=== PATIENT | male | born 1985 | race Caucasian/White ===

== ENCOUNTER 2019-03-01 12:57 | Inpatient (IN) ==
[2019-03-01] MEDS ORDERED: SODIUM CHLORIDE 0.9% IV STA (13:46)
[2019-03-01] MEDS ORDERED: VANCOMYCIN HCL IV STA (13:46)
[2019-03-01] MEDS ORDERED: VANCOMYCIN CONSULT ACTIVE PRN ×2 (13:46→16:33)
[2019-03-01] MEDS ORDERED: SODIUM CHLORIDE 0.9% 500 ML IV SCH (14:00)
--- NOTE | 2019-03-01 14:20 | Emergency Department Note ---
Entered by Marimar Galaviz acting as a scribe for History of Present Illness General Chief complaint: Swelling/Edema to Extremity Stated complaint: SWELLING AND PAIN SITE OF INCISION Time Seen by Provider: 03/01/19 13:40 Source: patient History of Present Illness Onset (ago): day(s) 2 Location: lower extremity (right inguinal area) Pain Consistency: + other (persistent) Maximum Pain Intensity: 5 Quality: + other (swelling) Relieved By: not by rest Associated symptoms: + other (blister, pain in area, fever, muscle pains) The patient is a 33 year old male that is presenting to the Emergency Room with complaints of persistent swelling in the right inguinal area that started 2 days ago. The patient reports that he had a lymph node biopsy performed on the area around [address] Deluca, [facility], for a history of lymphadenopathy in the right leg. He states that he started noticing some swelling in the incision area 2 days ago before going to work. He notes that he woke up feeling feverish with body aches that morning. He states that the swelling continued to worsen and become more painful over the course of the day. He reports that he laid flat yesterday and rested in hopes that this would relieve his symptoms, but the pain and swelling has worsened. He notes that that a large blister appeared in the area this morning. The patient states that he tried calling [facility] but they are still out for the holiday season. Home Medications Home Medications Medication Instructions Recorded Confirmed Type No Known Home Medications 03/01/19 03/01/19 History Allergies Allergy/AdvReac Type Severity Reaction Status Date / Time No Known Allergies Allergy Unverified 03/01/19 14:57 Past Med/Surg History Medical History Lymphadenopathy Surgical History H/O lymph node biopsy Family History Other No significant family history Social History marital status: Single Current Living Situation: Alone current occupational status: employed Feels Safe at Home: Yes Smoking Status: Former smoker Review of Systems See HPI for pertinent positives & negatives. and A total of 10 systems reviewed and were otherwise negative Physical Exam Vital Signs Vital Signs - 24 hr 03/01/19 13:12 Temperature 36.8 C Temperature Source Oral Pulse Rate 112 H Respiratory Rate 20 Respiratory Effort / Characteristics Non-Labored Spontaneous Respiratory Depth Normal Respiratory Pattern Regular Blood Pressure 133/77 Blood Pressure Mean 95 Blood Pressure Position Sitting Pulse Oximetry 96 Oxygen Delivery Method Room Air Sepsis Recent Fever Within 48 Hours No Sepsis New/Unexplained Change in Mental Status No Sepsis Action Taken by Nursing No Action Required CONSTITUTIONAL/VITAL SIGNS: Reviewed / noted above. GENERAL: Non-toxic in appearance. INTEGUMENTARY: Warm, dry, and [place]. Large fluctuant area in the right groin with surrounding erythema almost encompassing entire right upper thigh. Tenderness with palpation over the area. HEAD: Normocephalic. EYES: without scleral icterus or trauma. ENT/OROPHARYNX: clear and moist. LYMPHADENOPATHY/NECK: Is supple without lymphadenopathy or meningismus. RESPIRATORY: Lungs clear and equal. CARDIOVASCULAR: Regular rate and rhythm. GI/ABDOMEN: Soft and nontender. No organomegaly or pulsatile mass. No rebound or guarding. Normal bowel sounds. EXTREMITIES: Warm and well perfused. BACK: No CVA tenderness. NEUROLOGICAL: Intact without focal deficits. PSYCHIATRIC: normal affect. MUSCULOSKELETAL: Normally developed with good muscle tone. Procedures Abscess I/D Site: other (groin) Side (if applicable): right Technique: needle aspiration Amount of fluid expressed (mL): 22 Irrigation: No Packing used?: none Course Course 1342:The patient was evaluated in room C10. A complete history and physical examination was performed. 1350: Bedside US showed a large fluid collection in right groin. Needle inserted into the fluid collection and a straw colored clear fluid that was withdrawn. At least 20ccs of fluid was withdrawn from the area and additional fluid drained from the needle insertion site. 1500: I discussed the patient's case with Dr. Merchant, [facility], who will evaluate the patient for further management and care. Upon reevaluation, the patient is resting comfortably. I discussed laboratory and radiographic results with the patient. He verbalized agreement of the treatment plan. The patient will be evaluated for further management and care. Administered Medications Vancomycin HCl 3,000 mg/ (Sodium Chloride) 560 mls @ 200 mls/hr IV NOW STA Stop: 03/01/19 16:15 Last Admin: 03/01/19 14:55 Dose: 200 mls/hr Documented by: [id number] Discontinued Medications Sodium Chloride (Nss) 500 mls @ 999 mls/hr IV .Q31M OLGA Stop: 03/01/19 14:30 Last Admin: 03/01/19 14:58 Dose: 999 mls/hr Documented by: [id number] Medical Decision Making Differential Diagnosis Differential diagnosis: Etiologies such as cellulitis, abscess, MRSA infection, DVT, necrotizing fasciitis, dermatitis, drug eruption, as well as others were entertained. Medical Records Attestation: I reviewed the patient's medical records. Home Medications Current Medication List: was personally reviewed by [place] Laboratory Data Attestation: I reviewed the patient's lab results. Result diagrams: 03/01/19 14:17 03/01/19 14:17 Lab Results 03/01/19 03/01/19 03/01/19 Range/Units 14:17 14:17 14:17 WBC 17.62 H (4.8-10.8) K/uL RBC 4.23 L (4.7-6.1) M/uL Hgb 13.3 L (14.0-18.0) g/dL Hct 39.3 L (42-52) % MCV 92.9 (80-100) fL MCH 31.4 (25-34) pg MCHC 33.8 (32-36) g/dL RDW Std Deviation 48.3 H (36.4-46.3) fL RDW Coeff of Bereket 14.2 (11.5-14.5) % Plt Count 259 (130-400) K/uL MPV 9.5 (7.4-10.4) fL Immature Gran % (Auto) 0.3 % Neut % (Auto) 82.9 % Lymph % (Auto) 6.7 % [place] % (Auto) 7.8 % Eos % (Auto) 2.1 % Baso % (Auto) 0.2 % Immature Gran # (Auto) 0.06 H (0.00-0.02) K/uL Neut # (Auto) 14.59 H (1.4-6.5) K/uL Lymph # (Auto) 1.18 L (1.2-3.4) K/uL [place] # (Auto) 1.38 H (0.11-0.59) K/uL Eos # (Auto) 0.37 (0-0.5) K/uL Baso # (Auto) 0.04 (0-0.2) K/uL Sodium 135 L (136-145) mmol/L Potassium 3.5 (3.5-5.1) mmol/L Chloride 99 (98-107) mmol/L Carbon Dioxide 29 (21-32) mmol/L Anion Gap 7.0 (3-11) BUN 29 H (7-18) mg/dl Creatinine 1.38 (0.6-1.4) mg/dl Est Cr Clr Drug Dosing 101.2 ml/min Est GFR ( Amer) 77.3 Est GFR (Non-Af Amer) 66.7 BUN/Creatinine Ratio 21.0 H (10-20) Glucose 106 H (70-99) mg/dl Lactate 1.6 (0.4-2.0) mmol/L Calcium 9.8 (8.5-10.1) mg/dl Total Bilirubin 1.4 H (0.2-1) mg/dl AST 46 H (15-37) U/L ALT 48 (12-78) U/L Alkaline Phosphatase 109 (45-117) U/L Total Protein 8.1 (6.4-8.2) gm/dl Albumin 3.1 L (3.4-5.0) gm/dl Globulin 5.0 H (2.5-4.0) gm/dl Albumin/Globulin Ratio 0.6 L (0.9-2) Blood Pressure Blood Pressure Findings: Elevated blood pressure Blood Pressure Disposition: Referred to patients primary care provider MDM Narrative This is a 33-year-old male who presents to the ED with a chief complaint of pain, redness and swelling in his right groin area. The patient states that about a month ago he had a biopsy of some nodes in his right groin. He states that he has malignant melanoma to the right lower extremity. The patient states that over the past few days he has noticed some fevers off and on as well as swelling, redness and discomfort. The procedure was performed at by Dr. Deluca. The patient denies any vomiting or diarrhea or other symptoms. His exam reveals a very large fluctuant area to the right groin. A needle was inserted into the area with bedside ultrasound showing the fluid collection and this revealed a clear straw-colored fluid from the wound. At least 22 cc was drained from the area and additional fluid drained out of the puncture site after the needle was removed. There is a large area of redness a nd induration of the majority of the right anterior thigh. It is warm with some tenderness over the fluctuant area. Culture was sent for the fluid obtained from the right groin. The white blood cell count is 17.6. BUN was 29. Blood work was otherwise unremarkable. No history of diabetes. The patient was given IV vancomycin. I spoke with the hospitalist, who will see the patient for further evaluation and care. Impression & Plan Cellulitis, Seroma Discharge Plan Visit Data Chief Complaint: Swelling/Edema to Extremity Stated Complaint: SWELLING AND PAIN SITE OF INCISION ED Provider: Keyur Shell Discharge Problem: Cellulitis, Seroma Patient Disposition: Being Evaluated by Hospitalist Forms Stand Alone Forms: My [facility] Prescriptions Prescriptions: No Action No Known Home Medications RF: 0 Referrals Referrals: Rozina Champion [Primary Care Provider] - Discharge Problem: Cellulitis Qualifiers: Site of cellulitis: extremity Site of cellulitis of extremity: lower extremity Laterality: right Qualified Code(s): L03.115 - Cellulitis of right lower limb The scribe's documentation has been prepared under my direction and personally reviewed by me in its entirety. I confirm that the note above accurately reflects all work, treatment, procedures, and medical decision making performed by me.
[2019-03-01 14:49] LABS: Albumin Level 3.1 gm/dl (3.4-5.0); Basophils # (auto) 0.04 K/uL (0-0.2); Basophils % (auto) 0.2 %; Calcium 9.8 mg/dl (8.5-10.1); Creatinine Clr Calc Pharmacy 101.2 ml/min; Eosinophils # (auto) 0.37 K/uL (0-0.5); Eosinophils % (auto) 2.1 %; Est GFR (African American) 77.3; Est GFR (Non-African American) 66.7; Hematocrit (blood only) 39.3 % (42-52); Hemoglobin 13.3 g/dL (14.0-18.0); Immature Granulocytes # (auto) 0.06 K/uL (0.00-0.02); Immature Granulocytes % (auto) 0.3 %; Lymphocytes # (auto) 1.18 K/uL (1.2-3.4); Lymphocytes % (auto) 6.7 %; Mean Corpuscular Hemoglobin 31.4 pg (25-34); Mean Corpuscular Hgb Conc 33.8 g/dL (32-36); Mean Corpuscular Volume 92.9 fL (80-100); Mean Platelet Volume 9.5 fL (7.4-10.4); Monocytes # (auto) 1.38 K/uL (0.11-0.59); Monocytes % (auto) 7.8 %; Neutrophils # (auto) 14.59 K/uL (1.4-6.5); Neutrophils % (auto) 82.9 %; Platelet Count 259 K/uL (130-400); Potassium 3.5 mmol/L (3.5-5.1); RDW Coefficient of Variation 14.2 % (11.5-14.5); RDW Standard Deviation 48.3 fL (36.4-46.3); Red Blood Count 4.23 M/uL (4.7-6.1); White Blood Count 17.62 K/uL (4.8-10.8)
[2019-03-01 14:52] LABS: Albumin Globulin Ratio 0.6 (0.9-2); Bilirubin,Total 1.4 mg/dl (0.2-1); Total Protein 8.1 gm/dl (6.4-8.2)
--- NOTE | 2019-03-01 15:28 | History & Physical Report ---
Date of Service March 01, 2019 Assessment & Plan (1) Cellulitis: Patient with postoperative cellulitis on the right thigh. Patient was given IV vancomycin in the emergency room which we will continue. Patient's seroma was drained by the ER physician, no evidence of any further fluid. We will continue to monitor the area and await cultures to determine possible p.o. antibiotics and discharged follow-up with [place] surgical team. (2) Melanoma: Stable for now status post excision. Will need to follow-up as an outpatient with his previous surgical team. History of Present Illness Primary Care Provider: Rozina Champion This is a 33-year-old male past medical history of melanoma status post excision that presents today complaining of pain and erythema in his right groin. Patient states that approximately 1 month ago he was diagnosed with an early melanoma in his right thigh. He was seen in [place] and had this excised along with dissection into lymph nodes. The wound was right in the area that rubbed against his underpants, but he was overall having no issues. He was using ibuprofen and Tylenol for pain control which is working well. However, over the past 2 days he noticed that the area is becoming more erythematous. Yesterday, a large blister developed was concerning to the patient. The pain increased until this morning when it became much more severe. Rather than calling the surgical team, who presented the emergency room for more immediate treatment. He did note some mild subjective fevers and chills but denied any other systemic symptoms. The ER physician drained the blister. He told me he removed lot of serous looking fluid that did not appear to be purulent. Fluid was sent for culture. At this point, the patient tells me the pain is somewhat improved. Allergies Allergy/AdvReac Type Severity Reaction Status Date / Time No Known Allergies Allergy Unverified 03/01/19 14:57 Home Medications Home Medications Medication Instructions Recorded Confirmed Type No Known Home Medications 03/01/19 03/01/19 History Past Med/Surg History Medical History Lymphadenopathy Surgical History H/O lymph node biopsy Family History Other No significant family history Social History marital status: Single Current Living Situation: Alone current occupational status: employed Feels Safe at Home: Yes Smoking Status: Former smoker Review of Systems Constitutional: + fever, + chills and + body aches Ear, Nose, Mouth, Throat: as per Subjective / HPI Respiratory: no cough, no chest congestion, no dyspnea and no dyspnea on exertion Cardiovascular: no chest pain, no chest pain at rest, no radiating jaw, neck or arm pain and no dyspnea Gastrointestinal: no abdominal pain, no nausea, no vomiting, no constipation and no diarrhea/loose stools Genitourinary: no dysuria and no difficulty urinating Musculoskeletal: as per Subjective / HPI Integumentary: + lesions and + problem reported Neurologic: as per Subjective / HPI Psychiatric: as per Subjective / HPI Physical Exam Constitutional: well nourished and cooperative; no acute distress ENMT: external ear and nose normal, oropharynx normal Respiratory: Auscultation: lungs clear to auscultation bilaterally; no crackles, no rales, no rhonchi, no wheezes and no pleural rub Cardiovascular: Rate/Rhythm: regular rate and regular rhythm Heart Sounds: normal S1 and normal S2 Vessels: no JVD and no carotid bruit Gastrointestinal (Abdomen): Inspection/Auscultation: abdomen normal to inspection Percussion/Palpation: abdomen nontender, no guarding, abdomen not rigid, + abdomen not soft and no hepatosplenomegaly Musculoskeletal: no cyanosis or clubbing, extremities motor strength 5/5 Skin: Right thigh with a large, ecchymotic looking wound. There may have been a superficial blister that is since been opened and drained. There is mild erythema that tracks down through most of the inner thigh almost to the knee. There is mild induration and the very medial inner thigh that is tender to touch. Psychiatric: A+Ox3, euthymic affect Results & Data Vital Signs (Past 12 Hours) Vital Signs Temp Pulse Resp BP Pulse Ox 03/01/19 13:12 36.8 C 112 H 20 133/77 96 Laboratory Results Patient with white count of 17.62. Sodium is 135. BUN is 29, creatinine 1.38. Glucose is 106. Diagnostic Findings MR brain wo/w con HISTORY: 33 years-old Male MALIGNANT MELANOMA RLE follow-up study in a patient with right lower extremity malignant melanoma COMPARISON: None available TECHNIQUE: Multiplanar multisequence MRI of the brain was obtained both with and without the use of 12.5 mL Gadavist FINDINGS: Movie Shot Cameraman localizer images demonstrate no gross extracranial abnormality. There are a few prominent suboccipital lymph nodes noted measuring up to 8 mm in short axis. There is no restricted diffusion to suggest acute or subacute infarction. Midline structures including the corpus callosum, brainstem, optic chiasm, pituitary and pineal glands appear unremarkable the sagittal T1 series. No cerebellar tonsillar herniation. No acute intracranial hemorrhage, midline shift, abnormal extra-axial collection, hydrocephalus or intracranial mass. Brain parenchyma is unremarkable. There are a few punctate scattered foci of subcortical T2/FLAIR prolongation, likely of no clinical significance. No abnormal intra-axial or extra-axial enhancement. Study is mildly motion degraded. Major flow voids at the level of the skull base appear patent. Mastoid air cells are clear. Minimal mucosal thickening of the maxillary sinuses. Skull, orbits and soft tissues are unremarkable. IMPRESSION: 1. No acute intracranial abnormality. 2. No abnormal enhancement to suggest metastatic disease. 3. There are a few nonspecific prominent bilateral suboccipital lymph nodes. PG Care Time/CCT Total # of Minutes Spent Total Time Spent with Patient: Total time spent is greater than 50% in coordination of care (as documented) at patient's floor/unit and/or counseling patient: (1) Cellulitis Laterality: right Site of cellulitis: extremity Site of cellulitis of extremity: lower extremity Qualified Code(s): L03.115 - Cellulitis of right lower limb
[2019-03-01] MEDS ORDERED: ZOLPIDEM TARTRATE 5 MG TAB PO PRN (16:33)
[2019-03-01] MEDS ORDERED: OXYCODONE HCL IR 5 MG TAB (IMMEDIATE RELEASE) PO PRN (16:33)
[2019-03-01] MEDS ORDERED: VANCOMYCIN HCL 1,000 MG in SODIUM CHLORIDE 0.9% 250 ML IV SCH (16:33)
[2019-03-01] MEDS: ACETAMINOPHEN 325 MG TAB PO PRN (17:04)
--- NOTE | 2019-03-01 22:33 | Pharmacy Report ---
Pharmacy Abx Initial Consult - Date of Service March 01, 2019 - Pharmacy Dosing Scope Date of Consult: 03/01/19 Consultation requested by: Dr. Merchant Pharmacy is consulted to initiate Vancomycin IV dosing therapy, order appropriate labs and adjust drug dose/frequency. - Subjective The patient is a 33 year old M admitted on 03/01/19 15:33. - Objective Height: 5 ft 10 in Weight: 125 kg Vital Signs (Past 12hrs): Vital Signs Temp Pulse Pulse Resp BP BP Pulse Ox 03/01/19 16:33 36.9 C 114 H 20 131/74 100 03/01/19 15:31 100 H 20 03/01/19 15:30 105 H 20 139/92 03/01/19 15:01 107 H 22 03/01/19 15:00 98 H 20 134/81 03/01/19 14:58 103 H 24 127/86 03/01/19 14:30 106 H 24 03/01/19 14:12 106 H 23 03/01/19 13:12 36.8 C 112 H 20 133/77 96 Lab Results (24hrs): Laboratory Tests (24 Hours) 03/01/19 03/01/19 14:17 14:17 WBC 17.62 H Neut # (Auto) 14.59 H Creatinine 1.38 Est Cr Clr Drug Dosing 101.2 Micro Results: 03/01/19 14:10 Gram Stain - Pending Thigh,Right Wound Culture - Pending 03/01/19 14:23 Aerobic Blood Culture - Pending Blood Anaerobic Blood Culture - Pending 03/01/19 14:17 Aerobic Blood Culture - Pending Blood Anaerobic Blood Culture - Pending - Assessment & Plan Assessment 33 year old M presenting with right thigh cellulitis. Patient had early melanoma that was excised from his right thigh. Past 2 days the area has become more er ythematous and blister has formed. Plan Vancomycin for treatment of Cellulitis Vancomycin IV * Estimated PK Parameters: Vd 0.54 L/kg, Andi 0.87 hr-1, t1/2 8 hr * Loading dose: 3000 mg (24 mg/kg) * Maintenance dose: 1500 mg IV (12 mg/kg) every 8 hours * Goal trough level for cellulitis: ~15 mcg/mL * Trough level ordered for 03/02/19 at 2330 Pharmacy will continue to follow and will adjust dose/frequency as necessary. Thank you.
[2019-03-01] MEDS: VANCOMYCIN HCL 1,500 MG in SODIUM CHLORIDE 0.9% 500 ML IV SCH (23:59)
[2019-03-02 07:34] LABS: Creatinine Clr Calc Pharmacy 131.5 ml/min; Est GFR (African American) 106.4; Est GFR (Non-African American) 91.8
[2019-03-02] MEDS: VANCOMYCIN HCL 1,500 MG in SODIUM CHLORIDE 0.9% 500 ML IV SCH (07:55)
[2019-03-02 08:46] LABS: Basophils # (auto) 0.04 K/uL (0-0.2); Basophils % (auto) 0.2 %; Eosinophils # (auto) 0.33 K/uL (0-0.5); Eosinophils % (auto) 1.7 %; Hematocrit (blood only) 35.3 % (42-52); Hemoglobin 11.7 g/dL (14.0-18.0); Immature Granulocytes # (auto) 0.09 K/uL (0.00-0.02); Immature Granulocytes % (auto) 0.5 %; Lymphocytes # (auto) 1.24 K/uL (1.2-3.4); Lymphocytes % (auto) 6.4 %; Mean Corpuscular Hemoglobin 30.5 pg (25-34); Mean Corpuscular Hgb Conc 33.1 g/dL (32-36); Mean Corpuscular Volume 92.2 fL (80-100); Mean Platelet Volume 9.9 fL (7.4-10.4); Monocytes # (auto) 1.57 K/uL (0.11-0.59); Monocytes % (auto) 8.1 %; Neutrophils # (auto) 16.03 K/uL (1.4-6.5); Neutrophils % (auto) 83.1 %; Platelet Count 257 K/uL (130-400); RDW Coefficient of Variation 14.4 % (11.5-14.5); Red Blood Count 3.83 M/uL (4.7-6.1)
--- NOTE | 2019-03-02 12:54 | Hospitalist Progress Note ---
Date of Service March 02, 2019 Assessment & Plan (1) Cellulitis: 33 y/o M with PMH of Melanoma s/p excision in January; three days of warmth and tenderness to touch to the right upper thigh and groin. Cellulitis: - Patient with postoperative cellulitis on the right thigh - surface culture: positive for GBS - Blood culture: pending - received IV vancomycin overnight; switched to Rocephin and Bactrim - will continue to follow-up - will need follow-up with [place] surgical team after discharge Melanoma: -Stable for now status post excision -Will need to follow-up as an outpatient with his previous surgical team. (2) Melanoma: Supervising Physician Co-Signing Physician Notes I personally examined the patient and verified all martínez points of history and exa m, discussed case, and agree with decision making with Dr Lu. Leg feels a little bit better. Less tender than before. Vitals noted, in general he is awake and alert pleasant no distress. HEENT n ormocephalic atraumatic mucous membranes are moist. Breathing unlabored no accessory muscle use good effort. Right groin shows an extremely large area of tender erythema from about his groin two thirds of the way distal to his knee predominantly medially, it is tender but he notes better than before. The proximal wound has surrounding ecchymoses no notable fluctuance and is quite tender although he notes better than before. No exudate is able to be expressed. Right leg cellulitis with sepsis present on admissionimproving. Cultures growing group B strep, this is probably part of the etiology, but given that the culture does not necessarily reflect what is present in the cellulitis, continue to cover for healthcare associated pathogens as welldoes appear safe for a trial of transition to Keflex and Bactrim, but definitely given that he is still septic we should watch for improvement in-house before being able to look towards home. Otherwise as above Subjective Patient continues to feel uncomfortable with tenseness of the skin on his leg, since he was admitted has tried not to actively move the leg continuously but has noticed that it does not hurt like it did prior to coming to the emergency department; has no recollection of any family or personal history of MRSA infections, or boils that had to be cut open to be drained. Review of Systems Constitutional: no fever, no chills and no sweats Eyes: no diplopia and no spots in vision Respiratory: no cough, no dyspnea and no wheezing Cardiovascular: no chest pain, no dyspnea and no orthopnea Gastrointestinal: no abdominal pain, no nausea and no vomiting Integumentary: + erythema and + skin swelling Physical Exam 2 Constitutional: WD/WN, vitals as above Eyes: PERRL, conjunctivae normal, anicteric sclerae Respiratory: normal respiratory effort, lungs clear to auscultation Cardiovascular: Rate/Rhythm: regular rate and regular rhythm Heart Sounds: normal S1 and normal S2; no gallop, no murmur and no cardiac rub Gastrointestinal (Abdomen): normal bowel sounds, soft, nontender, no hepatosplenomegaly Skin: + rash, + skin tightening, + wound and + erythema Results & Data Vital Signs (Past 12 Hours) Vital Signs Temp Pulse Resp BP Pulse Ox 03/02/19 08:08 37.4 C 117 H 20 111/63 90 Laboratory Results 03/02/19 03/02/19 03/01/19 Range/Units 06:51 06:47 14:17 WBC 19.30 H (4.8-10.8) K/uL RBC 3.83 L (4.7-6.1) M/uL Hgb 11.7 L (14.0-18.0) g/dL Hct 35.3 L (42-52) % MCV 92.2 (80-100) fL MCH 30.5 (25-34) pg MCHC 33.1 (32-36) g/dL RDW Std Deviation 49.0 H (36.4-46.3) fL RDW Coeff of Bereket 14.4 (11.5-14.5) % Plt Count 257 (130-400) K/uL MPV 9.9 (7.4-10.4) fL Immature Gran % (Auto) 0.5 % Neut % (Auto) 83.1 % Lymph % (Auto) 6.4 % [place] % (Auto) 8.1 % Eos % (Auto) 1.7 % Baso % (Auto) 0.2 % Immature Gran # (Auto) 0.09 H (0.00-0.02) K/uL Neut # (Auto) 16.03 H (1.4-6.5) K/uL Lymph # (Auto) 1.24 (1.2-3.4) K/uL [place] # (Auto) 1.57 H (0.11-0.59) K/uL Eos # (Auto) 0.33 (0-0.5) K/uL Baso # (Auto) 0.04 (0-0.2) K/uL Sodium (136-145) mmol/L Potassium (3.5-5.1) mmol/L Chloride (98-107) mmol/L Carbon Dioxide (21-32) mmol/L Anion Gap (3-11) BUN (7-18) mg/dl Creatinine 1.06 (0.6-1.4) mg/dl Est Cr Clr Drug Dosing 131.5 ml/min Est GFR ( Amer) 106.4 Est GFR (Non-Af Amer) 91.8 BUN/Creatinine Ratio (10-20) Glucose (70-99) mg/dl Lactate 1.6 (0.4-2.0) mmol/L Calcium (8.5-10.1) mg/dl Total Bilirubin (0.2-1) mg/dl AST (15-37) U/L ALT (12-78) U/L Alkaline Phosphatase (45-117) U/L Total Protein (6.4-8.2) gm/dl Albumin (3.4-5.0) gm/dl Globulin (2.5-4.0) gm/dl Albumin/Globulin Ratio (0.9-2) 03/01/19 03/01/19 Range/Units 14:17 14:17 WBC 17.62 H (4.8-10.8) K/uL RBC 4.23 L (4.7-6.1) M/uL Hgb 13.3 L (14.0-18.0) g/dL Hct 39.3 L (42-52) % MCV 92.9 (80-100) fL MCH 31.4 (25-34) pg MCHC 33.8 (32-36) g/dL RDW Std Deviation 48.3 H (36.4-46.3) fL RDW Coeff of Bereket 14.2 (11.5-14.5) % Plt Count 259 (130-400) K/uL MPV 9.5 (7.4-10.4) fL Immature Gran % (Auto) 0.3 % Neut % (Auto) 82.9 % Lymph % (Auto) 6.7 % [place] % (Auto) 7.8 % Eos % (Auto) 2.1 % Baso % (Auto) 0.2 % Immature Gran # (Auto) 0.06 H (0.00-0.02) K/uL Neut # (Auto) 14.59 H (1.4-6.5) K/uL Lymph # (Auto) 1.18 L (1.2-3.4) K/uL [place] # (Auto) 1.38 H (0.11-0.59) K/uL Eos # (Auto) 0.37 (0-0.5) K/uL Baso # (Auto) 0.04 (0-0.2) K/uL Sodium 135 L (136-145) mmol/L Potassium 3.5 (3.5-5.1) mmol/L Chloride 99 (98-107) mmol/L Carbon Dioxide 29 (21-32) mmol/L Anion Gap 7.0 (3-11) BUN 29 H (7-18) mg/dl Creatinine 1.38 (0.6-1.4) mg/dl Est Cr Clr Drug Dosing 101.2 ml/min Est GFR ( Amer) 77.3 Est GFR (Non-Af Amer) 66.7 BUN/Creatinine Ratio 21.0 H (10-20) Glucose 106 H (70-99) mg/dl Lactate (0.4-2.0) mmol/L Calcium 9.8 (8.5-10.1) mg/dl Total Bilirubin 1.4 H (0.2-1) mg/dl AST 46 H (15-37) U/L ALT 48 (12-78) U/L Alkaline Phosphatase 109 (45-117) U/L Total Protein 8.1 (6.4-8.2) gm/dl Albumin 3.1 L (3.4-5.0) gm/dl Globulin 5.0 H (2.5-4.0) gm/dl Albumin/Globulin Ratio 0.6 L (0.9-2) Medications Administered Current Inpatient Medications Acetaminophen (Tylenol) 650 mg PO Q4H PRN PRN Reason: pain/fever Stop: 03/31/19 16:32 Last Admin: 03/01/19 17:04 Dose: 650 mg Documented by: Cephalexin HCl (Keflex) 500 mg PO QID OLGA Stop: 03/12/19 12:59 Oxycodone HCl (Roxicodone Immediate Rel) 5 mg PO Q6H PRN PRN Reason: Pain Stop: 03/15/19 16:32 Trimethoprim/Sulfamethoxazole (Septra Ds 800/160mg Tab) 1 tab PO Q12 OLGA Stop: 03/12/19 20:59 Zolpidem Tartrate (Ambien) 5 mg PO HS PRN PRN Reason: Sleep Stop: 03/31/19 16:32 Resident Activity Tracking Resident Involvement: Resident Care Provided Care Provided: Adult Hospital Medicine (1) Cellulitis Laterality: right Site of cellulitis: extremity Site of cellulitis of extremity: lower extremity Qualified Code(s): L03.115 - Cellulitis of right lower limb
[2019-03-02] MEDS: cephALEXin 500 MG CAP PO SCH ×3 (13:31→21:33)
--- NOTE | 2019-03-02 18:08 | Billing Data ---
Date of Service March 02, 2019 Coding Level of Care Code 28172 Subseq Hosp Care Lvl 3
[2019-03-02] MEDS: SULFAMETHOXAZOLE/TRIMETHOPRIM DS 800/160MG TAB PO SCH (21:34)
[2019-03-02] MEDS ORDERED: VANCOMYCIN TROUGH ONE (23:30)
[2019-03-03 06:55] LABS: Est GFR (African American) 112.7; Est GFR (Non-African American) 97.3
[2019-03-03 07:31] LABS: Basophils # (auto) 0.05 K/uL (0-0.2); Basophils % (auto) 0.3 %; Eosinophils # (auto) 0.59 K/uL (0-0.5); Eosinophils % (auto) 3.6 %; Hematocrit (blood only) 36.2 % (42-52); Hemoglobin 12.1 g/dL (14.0-18.0); Immature Granulocytes # (auto) 0.25 K/uL (0.00-0.02); Immature Granulocytes % (auto) 1.5 %; Lymphocytes # (auto) 1.83 K/uL (1.2-3.4); Lymphocytes % (auto) 11.3 %; Mean Corpuscular Hemoglobin 30.7 pg (25-34); Mean Corpuscular Hgb Conc 33.4 g/dL (32-36); Mean Corpuscular Volume 91.9 fL (80-100); Mean Platelet Volume 9.4 fL (7.4-10.4); Monocytes # (auto) 1.79 K/uL (0.11-0.59); Neutrophils # (auto) 11.75 K/uL (1.4-6.5); Neutrophils % (auto) 72.3 %; Platelet Count 266 K/uL (130-400); RDW Coefficient of Variation 14.5 % (11.5-14.5); RDW Standard Deviation 49.5 fL (36.4-46.3); Red Blood Count 3.94 M/uL (4.7-6.1); White Blood Count 16.26 K/uL (4.8-10.8)
[2019-03-03 09:12] VITALS: PULSE 115; O2SAT 91
[2019-03-03] MEDS: cephALEXin 500 MG CAP PO SCH ×2 (09:14→12:35)
[2019-03-03] MEDS: SULFAMETHOXAZOLE/TRIMETHOPRIM DS 800/160MG TAB PO SCH (09:15)
[2019-03-03] MEDS: ACETAMINOPHEN 325 MG TAB PO PRN (09:18)
[2019-03-03 09:19] VITALS: TEMP 98.2
--- NOTE | 2019-03-03 11:16 | Discharge Summary ---
Date of Service March 03, 2019 Admission HPI Per Admitting Provider This is a 33-year-old male past medical history of melanoma status post excision that presents today complaining of pain and erythema in his right groin. Patient states that approximately 1 month ago he was diagnosed with an early melanoma in his right thigh. He was seen in [place] and had this excised along with dissection into lymph nodes. The wound was right in the area that rubbed against his underpants, but he was overall having no issues. He was using ibuprofen and Tylenol for pain control which is working well. However, over the past 2 days he noticed that the area is becoming more erythematous. Yesterday, a large blister developed was concerning to the patient. The pain increased until this morning when it became much more severe. Rather than calling the surgical team, who presented the emergency room for more immediate treatment. He did note some mild subjective fevers and chills but denied any other systemic symptoms. The ER physician drained the blister. He told me he removed lot of serous looking fluid that did not appear to be purulent. Fluid was sent for culture. At this point, the patient tells me the pain is somewhat improved. Principal Diagnosis Cellulitis Discharge Exam Constitutional WD/WN, vitals as above Eyes PERRL, conjunctivae normal, anicteric sclerae Respiratory normal respiratory effort, lungs clear to auscultation Cardiovascular Rate/Rhythm: regular rate and regular rhythm Heart Sounds: normal S1 and normal S2; no gallop, no murmur and no cardiac rub Gastrointestinal (Abdomen) normal bowel sounds, soft, nontender, no hepatosplenomegaly Skin + rash and + wound improved skin tightening, erythema, warmth, and tenderness Discharge Data Allergies Allergy/AdvReac Type Severity Reaction Status Date / Time No Known Allergies Allergy Unverified 03/01/19 14:57 Hospital Course (1) Cellulitis: 33 y/o M with PMH of Melanoma s/p excision in January; three days of warmth and tenderness to touch to the right upper thigh and groin. Cellulitis: - Patient with postoperative cellulitis on the right thigh - surface culture: positive for GBS - Continue Rocephin and Bactrim for 7 days - will continue to follow-up - will need follow-up with [place] surgical team Melanoma: -Stable for now status post excision -Will need to follow-up as an outpatient with his previous surgical team. (2) Melanoma: Total Time Total Time Spent Total Time Spent (In Minutes): <30 Discharge Plan Discharge Items Patient Disposition: Home - Self-Care Reason For Visit: CELLULITIS Discharge Diagnosis: Cellulitis Activity: Per Instructions section Non-emergency contact: Primary Care Provider Call non-emergency contact if: your symptoms worsen, your pain is not controlled, your temperature is above 101, your wound has increased redness and your wound has increased drainage Follow-up/Referrals: Rozina Champion [Primary Care Provider] - 03/08/19 1:30 pm (Please, follow up with WILL Champion on March 08 at 1:30 pm. *If you need to change this appointment, call the office at [phone].) Diet: Regular Addtl Attending Provider Instructions: You were admitted for worsening pain and redness to your right thigh, one month after surgical removal of a lymph node and melanoma lesion. This was determined to be an infection, and the surrounding swelling was drained and demonstrated that it needed antibiotics. Now that you are going home you will be continued on these medications, it is important that you keep a close eye on your leg over the coming days and if it starts to have increasing warmth and tenderness that you give us a call. You will have follow-up on 03/[address] Roy of the [facility] at [address], [place] [address] Pending Studies at Discharge: No Stand-Alone Forms: My [facility], Smoking Cessation Medications and DC Order Prescriptions: New sulfamethoxazole-trimethoprim 800-160 mg Tablet 1 tab PO Q12 7 Days Qty: 14 RF: 0 cephalexin 500 mg Capsule 500 mg PO QID 7 Days Qty: 28 RF: 0 No Action No Known Home Medications RF: 0 Discharge Orders: Discharge Order (Routine); Ordered 03/03/19 Ordered By: Keven Roy Admission Data Admit Date/Time: 03/01/19 15:33 Attending Provider: Abrahan Lopez Admit Provider: Coy Merchant Primary Care Provider: Rozina Champion Other Providers: Coy Merchant Other Interventions: Discharge Summary Assessment (RN) Last Done: 03/03/19 12:37 DC Date/Time DO NOT enter until pt leaves facility: 03/03/19 13:49 Supervising Physician Co-Signing Physician Notes I personally examined the patient and verified all martínez points of history and exam, discussed case, and agree with decision making with Dr Roy. leg less tender. feeling up to going home. we scheduled him w dr roy for f/u on 03/06. Vitals noted, in general he is awake and alert pleasant no distress. HEENT normocephalic atraumatic mucous membranes are moist. Breathing unlabored no accessory muscle use good effort. Right groin erythema much improved - other than around area of wound (which is somewhat indurated but no fluctuance, and no exudate can be expressed from the still-open wound) erythema is markedly improved and nontender. around wound tender but erythema has improved. Right leg cellulitis with sepsis present on admissionimproving. Cultures growing group B strep, this is probably part of the etiology, but given that the culture does not necessarily reflect what is present in the cellulitis, doing well on bactrim and keflex since yesterday - d/c home on same. close f/u. d/w pt that more likely than any worsening of cellulitis would be that area of induration could possibly congeal into abscess- although not appearing to do so at this time. abx, close outpt f/u (dr roy since he's been seeing him during this admission - continuity will be helpful) stable for home, sepsis resolving well Otherwise as above Resident Activity Tracking Resident Involvement: Resident Care Provided Care Provided: Adult Hospital Medicine
[2019-03-03 12:38] VITALS: BP 122/76
--- NOTE | 2019-03-03 19:52 | Billing Data ---
Date of Service March 03, 2019 Coding Level of Care Code D/C Day Management <30 mins
== END 2019-03-03 13:49 | disposition home or self-care (01) | DRG 872 ==
LOC: ED 12:57 → 4W 15:33 → SUATTDRO 15:33 → 4W 16:06